=== PATIENT | male | born 1940 | race Caucasian/White ===

== ENCOUNTER 2017-04-18 19:13 | Observation (INO) | payer BC, MEDICARE ==
[2017-04-18 19:14] VITALS: BP 115/63; PULSE 128; RESP 16; TEMP 100; O2SAT 98
--- NOTE | 2017-04-18 21:03 | RADRPT ---
EXAM DATE/TIME: 04/18/2017 19:48 [facility] COMPARISON: No previous studies available for comparison. INDICATIONS : Fever, chills MEDICAL HISTORY : None. SURGICAL HISTORY : None. ENCOUNTER: Initial ACUITY: 1 week PAIN SCORE: 0/10 LOCATION: chest FINDINGS: PA and lateral views of the chest demonstrate the lungs to be symmetrically aerated without evidence of mass, infiltrate or effusion. The cardiomediastinal contours are unremarkable. Osseous structure s are intact with multilevel marginal spurring. CONCLUSION: No acute cardiopulmonary process. Liborio Kennedy MD on April 18, 2017 at 21:01 Board Certified Radiologist. This report was verified electronically.
[2017-04-18 21:05] LABS: AUTOMATED NEUTROPHIL # 6.4 TH/MM3 (1.8-7.7); BASOPHIL % 0.5 % (0.0-2.0); BLOOD, URINE NEG (NEG); COMMENT (UR) CATH-CULT NOT IND; CULTURE IF INDICATED CATH CULTURE NOT IND; EOSINOPHIL % 0.1 % (0.0-4.0); GLUCOSE,URINE 300 mg/dL (NEG); HEMATOCRIT 43.4 % (39.0-51.0); HEMO FLAGS DIFF FINAL; KETONE, URINE NEG (NEG); LYMPH % 3.8 % (9.0-44.0); LYMPHOCYTE # 0.3 TH/MM3 (1.0-4.8); MEAN CELL VOLUME 86.9 FL (80.0-100.0); MEAN CORPUSCULAR HEMOGLOBIN 30.2 PG (27.0-34.0); MEAN CORPUSCULAR HGB CONC 34.8 % (32.0-36.0); MONO % 3.8 % (0.0-8.0); MUCUS URINE FEW /lpf (OCC); NEUT % 91.8 % (16.0-70.0); NITRITE,URINE NEG (NEG); PLATELET COUNT 206 TH/MM3 (150-450); RED BLOOD COUNT 4.99 MIL/MM3 (4.50-5.90); SQUAMOUS EPITHELIAL CELL URINE <1 /hpf (0-5); URINE COLOR YELLOW (YELLW/STRAW)
[2017-04-18 21:16] LABS: APTT (PATIENT) 24.2 SEC (24.3-30.1); PROTHROMBIN TIME - PATIENT 10.5 SEC (9.8-11.6)
[2017-04-18 21:32] VITALS: BP 117/67; PULSE 113; RESP 20; TEMP 100.1; O2SAT 94
[2017-04-18] MEDS ORDERED: GLIP5TAB8 PO (21:40)
[2017-04-18] MEDS ORDERED: OMEP10CA PO (21:40)
[2017-04-18] MEDS ORDERED: LOSA25TA PO (21:40)
[2017-04-18] MEDS ORDERED: METF500T PO (21:40)
[2017-04-18] MEDS ORDERED: SIMV20TA PO (21:40)
[2017-04-18 21:53] LABS: ANION GAP 8 MEQ/L (5-15); AST (GOT) 15 U/L (15-37); BICARBONATE 27.9 MEQ/L (21.0-32.0); BLOOD UREA NITROGEN 21 MG/DL (7-18); CHLORIDE 97 MEQ/L (98-107); GLOMERULAR FILTRATION RATE 54 ML/MIN (>89); POTASSIUM 4.3 MEQ/L (3.5-5.1); SODIUM (NA) 133 MEQ/L (136-145)
[2017-04-18 21:58] LABS: ALKALINE PHOSPHATASE 95 U/L (45-117); ALT (GPT) 27 U/L (12-78); TOTAL BILIRUBIN ADULT 0.6 MG/DL (0.2-1.0)
[2017-04-18 22:00] LABS: CREATINE KINASE 47 U/L (39-308)
[2017-04-18] MEDS ORDERED: ACETAMINOPHEN 325 MG TAB PO ONE (22:30)
[2017-04-18] MEDS ORDERED: SODIUM CHLOR 0.9% 1000 ML INJ 1,000 ML IV ONE (22:30)
[2017-04-18 22:32] VITALS: BP 117/62; PULSE 102; RESP 20; O2SAT 95
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
--- NOTE | 2017-04-18 22:51 | RADRPT ---
EXAM DATE/TIME: 04/18/2017 22:40 [facility] COMPARISON: No previous studies available for comparison. INDICATIONS : Patient complains of headache. RADIATION DOSE: 34.64 CTDIvol (mGy) MEDICAL HISTORY : Hypertension. Diabetes mellitus type 1. SURGICAL HISTORY : None. ENCOUNTER: Initial ACUITY: 1 day PAIN SCALE: 4/10 LOCATION: cranial TECHNIQUE: Multiple contiguous axial images were obtained of the head. Using automated exposure control and adj ustment of the mA and/or kV according to patient size, radiation dose was kept as low as reasonably a chievable to obtain optimal diagnostic quality images. DICOM format image data is available electro nically for review and comparison. FINDINGS: CEREBRUM: The ventricles are normal for age. Periventricular areas of diminished attenuation particularly arou nd the frontal horns are characteristic of mild small vessel ischemic demyelination. No evidence of m idline shift, mass lesion, hemorrhage or acute infarction. No extra-axial fluid collections are seen . POSTERIOR FOSSA: The cerebellum and brainstem are intact. The 4th ventricle is midline. The cerebellopontine angle i s unremarkable. EXTRACRANIAL: The visualized portion of the orbits is intact. Isolated mucoperiosteal thickening in the posterior e thmoid air cells on the right. SKULL: The calvaria is intact. No evidence of skull fracture. CONCLUSION: 1. Mild periventricular small vessel ischemic demyelination. 2. Isolated chronic sinusitis in a posterior ethmoid air cell on the right. 3. Nothing acute. Liborio Kennedy MD on April 18, 2017 at 22:48 Board Certified Radiologist. This report was verified electronically.
[2017-04-18 23:33] VITALS: BP 94/56; PULSE 87; RESP 20; TEMP 99.3; O2SAT 96
[2017-04-18 23:34] VITALS: BP 98/53; PULSE 88; RESP 20
[2017-04-18] MEDS ORDERED: SODIUM CHLORID 0.9% 500 ML INJ 500 ML IV ONE (23:45)
[2017-04-19 00:13] VITALS: BP_SYST 88; BP_SYST 94; BP_DIAS 53; BP_DIAS 54; RESP 20
[2017-04-19 00:15] VITALS: BP 93/59; PULSE 82; RESP 20; O2SAT 98
[2017-04-19] MEDS: SODIUM CHLOR 0.9% 1000 ML INJ 1,000 ML IV SCH ×2 (00:15→08:15)
[2017-04-19] MEDS ORDERED: SODIUM CHLOR 0.9% 1000 ML INJ 1,000 ML IV ONE (00:15)
[2017-04-19 01:23] VITALS: BP 86/68; PULSE 78; RESP 20; O2SAT 94
[2017-04-19] MEDS ORDERED: NALOXONE HCL 0.4 MG/ML AMP IV PUSH PRN (01:30)
[2017-04-19] MEDS ORDERED: ONDANSETRON HCL 4 MG/2 ML VIAL IVP PRN (01:30)
[2017-04-19] MEDS ORDERED: SENNOSIDES 8.6 MG TAB PO PRN (01:30)
[2017-04-19] MEDS ORDERED: SODIUM CHLORIDE 0.9% FLUSH 10 ML FLUSH IV FLUSH PRN (01:30)
[2017-04-19] MEDS ORDERED: MAGNESIUM HYDROXIDE SUSP 30 ML CUP PO PRN (01:30)
[2017-04-19] MEDS ORDERED: BISACODYL 10 MG SUPP RECTAL PRN (01:30)
[2017-04-19] MEDS ORDERED: LACTULOSE SYRUP 20 GM/30 ML CUP PO PRN (01:30)
[2017-04-19] MEDS ORDERED: GLUCAGON 1 MG/ML VIAL OTHER PRN (01:30)
[2017-04-19] MEDS ORDERED: DEXTROSE 50% IN WATER 50 ML VIAL(D50) IV PUSH PRN (01:30)
[2017-04-19] MEDS ORDERED: ACETAMINOPHEN 325 MG TAB PO PRN (01:30)
[2017-04-19 04:43] VITALS: BP 118/55; PULSE 82; RESP 18; TEMP 98.4; O2SAT 96
[2017-04-19] MEDS ORDERED: ENOXAPARIN SODIUM 40 MG/0.4 ML SYRINGE SQ SCH (06:00)
[2017-04-19 08:30] VITALS: BP 102/54; PULSE 85; RESP 16; TEMP 100; O2SAT 93
[2017-04-19] MEDS ORDERED: LOSARTAN 25 MG TAB PO SCH (09:00)
[2017-04-19] MEDS ORDERED: PANTOPRAZOLE SOD 20 MG DELAYED RELEASE TAB PO SCH (09:00)
[2017-04-19] MEDS ORDERED: PRAVASTATIN SOD 20 MG TAB PO SCH (09:00)
[2017-04-19] MEDS ORDERED: SODIUM CHLORIDE 0.9% FLUSH 10 ML FLUSH IV FLUSH SCH (09:00)
[2017-04-19] MEDS: INSULIN ASPART SUPPLEMENTAL SCALE SQ SCH ×2 (09:38→13:14)
[2017-04-19 11:24] VITALS: BP 105/64; PULSE 80; RESP 18; TEMP 96.3; O2SAT 94
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
[2017-04-19] MEDS ORDERED: ONGL5TAB PO (14:39)
--- NOTE | 2017-04-19 14:42 | HHI.DCPOC ---
Discharge Care Plan Diagnosis: (1) Hyperglycemia due to type 2 diabetes mellitus (2) Dehydration Your Health Problems Are: Fluctuating Blood Sugars Goals to Promote Your Health * To prevent worsening of your condition and complications * To maintain your health at the optimal level Directions to Meet Your Goals Take your medications as prescribed Follow your dietary instruction Follow activity as directed Keep your appointments as scheduled Take your immunizations and boosters as scheduled If your symptoms worsen call your PCP, if no PCP go to Urgent Care Center or Emergency Room Smoking is Dangerous to Your Health. Avoid second hand smoke Call the 24-hour hour crisis hotline for domestic abuse at Meredith Mcclure PA-C Apr 19, 2017 2:41 pm
--- NOTE | 2017-04-19 15:16 | EKG ---
Date Performed: 04/18/2017 Time Performed: 20:34:01 PTAGE: 76 years EKG: SINUS TACHYCARDIA MINIMAL VOLTAGE CRITERIA FOR LVH, CONSIDER NORMAL VARIANT ABNORMAL RHYTHM ECG NO PREVIOUS TRACING DOCTOR: Jasmin Gunter Interpretating Date/Time 04/19/2017 15:13:23
== END 2017-04-19 15:31 | disposition home or self-care (01) ==
LOC: NEPC 19:13 → NEDA 04-19 00:25 → NEPHCDU 04-19 02:37
PROVIDERS: ADMIT Internal Medicine; ATTEND Internal Medicine
DX: E11.65 Type 2 diabetes mellitus with hyperglycemia (principal); E86.0 Dehydration; R53.1 Weakness; B34.9 Viral infection, unspecified; R50.9 Fever, unspecified; R51 Headache; E78.00 Pure hypercholesterolemia, unspecified; I10 Essential (primary) hypertension; H91.91 Unspecified hearing loss, right ear; R94.31 Abnormal electrocardiogram [ECG] [EKG]; Z87.442 Personal history of urinary calculi
CPT/HCPCS: 70450; 71020; 80053; 81001; 82550; 82948; 83605; 84484; 85025; 85610; 85730; 87040; 87804; 93005; 96360; 96361; 96372; 99285; G0378; J1650; J1815; J7030; J7040